=== PATIENT | female | born 2000 | race Caucasian/White ===

== ENCOUNTER 2021-12-18 18:20 | Emergency (ER) | payer BC, MEDICAID, SELFPAY ==
[2021-12-18 18:21] VITALS: BP 121/75; PULSE 107; RESP 16; TEMP 36.6; O2SAT 100; BMI 31.4
--- NOTE | 2021-12-18 20:14 | EDS_ITS ---
HPI History of Present Illness Chief Complaint: Headache Informant: patient and parent Onset/Context/Timing Onset: Days (12) Context: Gradual and Onset Timing: Intermittent and Waxes and wanes Quality -Headache: Positive for Similar Prior Headaches (But more persistent) Location: Bilateral retro-orbital worse on the right Current Severity: Mild Maximum Severity: Moderate Worsened by: Light Relieved by: Dark Associated Symptoms/Injury Associated Symptoms: Positive for Photophobia; Negative for Fever, Nausea, Vomiting, Numbness, Tingling, Visual Changes, Blurred Vision or Visual Loss Injury - BREWER: Negative for Direct Trauma or Fall Narrative Narrative: 21-year-old female has a history of having headache this cycle although started on time, has been more persistent than normal, about 12 days. She is sexually active but uses condoms. No known right now. Headache has been present throughout her cycle this time. Other than that in the duration of all of this, the headaches are similar to what she has had in the past. Photophobic but no nausea or vomiting or focal neurologic symptoms. No fevers or chills or neck stiffness or sore throat/earache. Seen at urgent care initially and directed here. PFSH PFSH Medical History Non-smoker Home Medications metoclopramide HCl 10 mg tablet 10 mg PO Q6H PRN PRN Headache or nausea #20 tabs 12/18/21 [Rx Last Taken Unknown] Allergy/AdvReac Type Severity Reaction Status Date / Time shellfish derived Allergy Hives Verified 12/18/21 18:24 Social History Smoking Status: Never smoker ROS ROS ED Constitutional Constitutional ED: Denies chills or fever(s) Eyes Eyes: Reports photophobia; Denies blurry vision or diplopia ENT ENT ED: Denies ear pain or sore throat Cardiovascular Cardiovascular: Denies chest pain or palpitations Respiratory/Chest Respiratory/Chest: Denies cough or dyspnea Gastrointestinal Gastrointestinal: Denies abdominal pain, diarrhea, nausea or vomiting Genitourinary Genitourinary ED: Reports as per HPI and vaginal bleeding; Denies dysuria or urinary frequency Musculoskeletal Musculoskeletal: Denies back pain or myalgias Integumentary Denies abscess or rash Neurologic Neurologic: Reports headache(s); Denies paresthesias or weakness EXAM Physical Exam Const Vital Signs: 12/18/21 18:21 Temperature 98 F Temperature Source Temporal Pulse Rate 107 H Respiratory Rate 16 Blood Pressure 121/75 H Blood Pressure Mean 90 Pulse Ox 100 Oxygen Delivery Method Room Air Positive well nourished and well developed Constitutional Narrative: Well-appearing General Appearance ED: well developed and NAD HEENT Reports normocephalic and moist mucous membranes atraumatic Eyes PERRL, EOMs intact bilaterally and conjunctivae normal Eyes Narrative: photophobia Neck no lymphadenopathy, supple and no meningeal signs Resp normal respiratory effort and clear to auscultation bilaterally Cardio regular rate, regular rhythm and no murmurs Rate: Negative for tachycardic GI non-distended Speculum Exam - Vagina: vaginal bleeding Extremity normal to inspection and full ROM Neuro oriented x3 and CN's II-XII intact bilaterally Sensorium / Orientation: awake and alert Speech: speech normal Gait (Neuro): normal gait Motor Exam: strength 5/5 throughout Psych mental status grossly normal Skin Lesions: no lesions Rashes: no rashes MDM MDM MDM Narrative Medical decision making narrative: test is negative, therefore am comfortable with her following up with a medical office receptionist assistant and/your PCP regarding what I suspect her migraine headaches. Mom is comfortable with that and will have her follow-up with [facility] where she goes. Patient was given Toradol and oral Reglan here, this did help her headache and given a prescription for Reglan to use as needed. Lab Data Attestation: I reviewed the patient's lab results. Labs: Laboratory Results - last 24 hr 12/18/21 20:05 Urine Test Negative Discharge Plan Triage Chief Complaint: Headache Other Complaint: Vag Bleeding ED Provider: Mike Gutierrez Dx/Rx/DC Orders Clinical Impression: Abnormal uterine bleeding, Headache, migraine Instructions: Understanding Uterine Bleeding, ED, Migraine (Classical) Prescriptions: New metoclopramide HCl [metoclopramide HCl] 10 MG tablet 10 mg PO Q6H PRN PRN (Reason: Headache or nausea) Qty: 20 0RF Primary Care Provider: Eileen Rowe Referrals: Doctor,Your [Non-Staff] - As soon as possible (And/or gynecology) Disposition Disposition: Home, Self Care
[2021-12-18 20:33] LABS: Internal QC Validated? YES +Cl - CLEAR BKGD; Pregnancy, Urine Negative Negative
[2021-12-18] MEDS: Ketorolac 30 MG/ML Syringe IM (20:35)
[2021-12-18] MEDS: Metoclopramide 10 MG Tablet PO (20:45)
== END 2021-12-18 21:08 | disposition home or self-care (01) ==
PROVIDERS: Emergency Provider Emergency Medicine; PCP Pediatrics; Visit Provider Emergency Medicine
DX: N93.9 Abnormal uterine and vaginal bleeding, unspecified (principal); G43.909 Migraine, unspecified, not intractable, without status migrainosus
CPT/HCPCS: 81025; 96372; 99283

== ENCOUNTER 2021-12-20 13:11 | Emergency (ER) | payer BC, MEDICAID, SELFPAY ==
[2021-12-20] VITALS (11 sets, daily range): BP systolic 94–114; BP diastolic 61–98; PULSE 85–111; RESP 16–22; TEMP 36.6–37.2; O2SAT 98–100; BMI 32.7
--- NOTE | 2021-12-20 13:23 | EDS_ITS ---
HPI <ALTHEA Zuluaga - Last Filed: 12/20/21 18:59> History of Present Illness Chief Complaint: Abn Labs Narrative Narrative: Patient presents today with her mom and boyfriend after abnormal labs were obtained at her [facility] this morning. She states a hemoglobin of 5.6, RBC of 1.69, and hematocrit of 17.1% were all obtained. Patient states she has had heavy menstrual bleeding for the past 14 days which has been abnormal for her. She presented to the ED on 12/18/2021 with abnormal bleeding and a headache. She states that yesterday and today the bleeding has decreased and she has only had to change her pad 1-2 times total versus having to change it 1-2 times per hour during the past few days. Patient states she feels shaky, pale, cold, and has a mild headache. Patient denies any dizziness, lightheadedness, palpitations, and pelvic pain. PFSH <ALTHEA Zuluaga - Last Filed: 12/20/21 18:59> [facility] Medical History Non-smoker Home Medications ferrous sulfate 325 mg (65 mg iron) tablet (iron) 325 mg PO DAILY anemia 14 days #14 tabs 12/20/21 [Rx Last Taken Unknown] Allergy/AdvReac Type Severity Reaction Status Date / Time shellfish derived Allergy Hives Verified 12/20/21 13:15 Social History Smoking Status: Never smoker ROS <ALTHEA Zuluaga - Last Filed: 12/20/21 18:59> ROS ED Constitutional Constitutional ED: Reports chills; Denies fever(s) or sweats Eyes Eyes: Denies blurry vision or change in vision ENT ENT ED: Denies rhinorrhea or sore throat Cardiovascular Cardiovascular: Denies chest pain or palpitations Respiratory/Chest Respiratory/Chest: Reports shortness of breath with exertion; Denies cough or dyspnea Gastrointestinal Gastrointestinal: Denies abdominal pain, constipation, diarrhea, nausea or vomiting Genitourinary Genitourinary ED: Denies dysuria or urinary frequency Musculoskeletal Musculoskeletal: Denies myalgias Integumentary Denies abscess, Abrasions or rash Neurologic Neurologic: Reports headache(s); Denies paresthesias or weakness Psychiatric Psychiatric: Denies anxiety Hematologic/Lymphatic Hematologic/Lymphatic: Reports other Details: She denies a history of anemia. EXAM <ALTHEA Zuluaga - Last Filed: 12/20/21 18:59> Physical Exam Const Vital Signs: 12/20/21 13:13 12/20/21 13:44 12/20/21 15:36 Temperature 97.8 F 98.1 F Temperature Source Temporal Oral Pulse Rate 111 H 98 Respiratory Rate 16 19 H Respiratory Effort Normal Non-Labored Blood Pressure 114/78 94/64 Blood Pressure Mean 90 74 Blood Pressure Source Blood Pressure Position Blood Pressure Location Pulse Ox 99 99 Oxygen Delivery Method Room Air Room Air 12/20/21 15:37 12/20/21 15:41 12/20/21 15:56 Temperature 98.1 F 98.1 F 98.2 F Temperature Source Oral Oral Oral Pulse Rate 93 98 97 Respiratory Rate 19 H 18 18 Respiratory Effort Blood Pressure 94/64 94/64 96/61 Blood Pressure Mean 74 74 72 Blood Pressure Source Monitor Monitor Monitor Blood Pressure Position Semi-Fowlers Semi-Fowlers Semi-Fowlers Blood Pressure Location Right Arm Right Arm Right Arm Pulse Ox 99 99 100 Oxygen Delivery Method Room Air Room Air Room Air 12/20/21 16:54 12/20/21 17:20 12/20/21 17:27 Temperature 98.3 F 98.2 F 98.5 F Temperature Source Oral Oral Oral Pulse Rate 89 91 93 Respiratory Rate 20 H 22 H 21 H Respiratory Effort Blood Pressure 99/70 106/90 H 105/84 H Blood Pressure Mean 79 95 91 Blood Pressure Source Monitor Monitor Monitor Blood Pressure Position Semi-Fowlers Semi-Fowlers Semi-Fowlers Blood Pressure Location Right Arm Right Arm Right Arm Pulse Ox 100 100 99 Oxygen Delivery Method Room Air Room Air Room Air 12/20/21 17:27 12/20/21 17:42 12/20/21 18:42 Temperature 98.8 F 98.5 F 98.9 F Temperature Source Oral Oral Oral Pulse Rate 93 91 92 Respiratory Rate 18 18 18 Respiratory Effort Blood Pressure 103/79 103/70 Blood Pressure Mean 87 81 Blood Pressure Source Monitor Monitor Blood Pressure Position Semi-Fowlers Semi-Fowlers Blood Pressure Location Right Arm Right Arm Pulse Ox 99 98 99 Oxygen Delivery Method Room Air Room Air Room Air 12/20/21 19:06 Temperature 98.1 F Temperature Source Oral Pulse Rate 85 Respiratory Rate 18 Respiratory Effort Blood Pressure 111/98 H Blood Pressure Mean 102 Blood Pressure Source Monitor Blood Pressure Position Semi-Fowlers Blood Pressure Location Right Arm Pulse Ox 99 Oxygen Delivery Method Room Air Positive well nourished and well developed General Appearance ED: well developed HEENT Reports moist mucous membranes Negative for trauma or tenderness Eyes PERRL and EOMs intact bilaterally Neck supple Resp normal respiratory effort and clear to auscultation bilaterally Auscultation: Negative for rales, rhonchi or wheezes Cardio regular rhythm and no murmurs Rate: tachycardic GI normal to inspection, nondistended, normoactive bowel sounds and non-tender Palpation: soft Extremity normal to inspection Neuro oriented x3, CN's II-XII intact bilaterally and no sensory deficits noted Sensorium / Orientation: alert Motor Exam: strength 5/5 throughout Psych mental status grossly normal Skin no rashes or lesions noted, no wounds and skin turgor normal <Dr. Moises Retana, DO - Last Filed: 12/20/21 21:12> Physical Exam Const Vital Signs: 12/20/21 13:13 12/20/21 13:44 12/20/21 15:36 Temperature 97.8 F 98.1 F Temperature Source Temporal Oral Pulse Rate 111 H 98 Respiratory Rate 16 19 H Respiratory Effort Normal Non-Labored Blood Pressure 114/78 94/64 Blood Pressure Mean 90 74 Blood Pressure Source Blood Pressure Position Blood Pressure Location Pulse Ox 99 99 Oxygen Delivery Method Room Air Room Air 12/20/21 15:37 12/20/21 15:41 12/20/21 15:56 Temperature 98.1 F 98.1 F 98.2 F Temperature Source Oral Oral Oral Pulse Rate 93 98 97 Respiratory Rate 19 H 18 18 Respiratory Effort Blood Pressure 94/64 94/64 96/61 Blood Pressure Mean 74 74 72 Blood Pressure Source Monitor Monitor Monitor Blood Pressure Position Semi-Fowlers Semi-Fowlers Semi-Fowlers Blood Pressure Location Right Arm Right Arm Right Arm Pulse Ox 99 99 100 Oxygen Delivery Method Room Air Room Air Room Air 12/20/21 16:54 12/20/21 17:20 12/20/21 17:27 Temperature 98.3 F 98.2 F 98.5 F Temperature Source Oral Oral Oral Pulse Rate 89 91 93 Respiratory Rate 20 H 22 H 21 H Respiratory Effort Blood Pressure 99/70 106/90 H 105/84 H Blood Pressure Mean 79 95 91 Blood Pressure Source Monitor Monitor Monitor Blood Pressure Position Semi-Fowlers Semi-Fowlers Semi-Fowlers Blood Pressure Location Right Arm Right Arm Right Arm Pulse Ox 100 100 99 Oxygen Delivery Method Room Air Room Air Room Air 12/20/21 17:27 12/20/21 17:42 12/20/21 18:42 Temperature 98.8 F 98.5 F 98.9 F Temperature Source Oral Oral Oral Pulse Rate 93 91 92 Respiratory Rate 18 18 18 Respiratory Effort Blood Pressure 103/79 103/70 Blood Pressure Mean 87 81 Blood Pressure Source Monitor Monitor Blood Pressure Position Semi-Fowlers Semi-Fowlers Blood Pressure Location Right Arm Right Arm Pulse Ox 99 98 99 Oxygen Delivery Method Room Air Room Air Room Air 12/20/21 19:06 Temperature 98.1 F Temperature Source Oral Pulse Rate 85 Respiratory Rate 18 Respiratory Effort Blood Pressure 111/98 H Blood Pressure Mean 102 Blood Pressure Source Monitor Blood Pressure Position Semi-Fowlers Blood Pressure Location Right Arm Pulse Ox 99 Oxygen Delivery Method Room Air MDM <ALTHEA Zuluaga - Last Filed: 12/20/21 18:59> [facility] MDM Narrative Medical decision making narrative: Because of low red blood cell count and hemoglobin patient will be receiving 2 units of blood. She was slightly tachycardic before blood administration but otherwise appeared stable. Vital signs normalized after blood administration. patient was given oral contraceptives from her derrick builder that she is to start on Thursday. [facility] CL[facility]ICAL [facility]SE [facility]IST Dr. Humphreys was consulted and it was her recommendation that as long as patient feels stable and vaginal bleeding has minimized, she can safely discharge home with close follow-up from her office. She would like patient to start her oral contraceptives tonight. She stated her office will be giving patient a call on Thursday to schedule an appointment to look into this further. Lab Data Attestation: I reviewed the patient's lab results. Lab results narrative: RBC 1.64, Hgb 5.1, Hct 16.9, iron 37 Labs: Laboratory Results - last 24 hr 12/20/21 12/20/21 12/20/21 13:40 13:40 13:40 WBC 7.3 RBC 1.64 L Hgb 5.1 L* Hct 16.9 L MCV 103.0 H MCH 31.1 MCHC 30.2 L RDW Std Deviation 63.0 H RDW Coeff of Alvin 17.3 H Plt Count 324 MPV 9.4 Immature Gran % (Auto) 2.100 H Neut % (Auto) 57.2 Lymph % (Auto) 30.5 Brantley % (Auto) 8.3 Eos % (Auto) 1.5 Baso % (Auto) 0.4 Absolute Neuts (auto) 4.2 Absolute Lymphs (auto) 2.23 Nucleated RBC % 1.0 [address] Path Review May foll Polychromasia 1+ Hypochromasia 2+ PT 12.4 INR 1.0 APTT 30.0 Sodium 140 Potassium 3.8 Chloride 108 H Carbon Dioxide 26.0 Anion Gap 6 BUN 11 Creatinine 1.13 H Estim Creat Clear Calc 83.02 Est GFR (MDRD) Af Amer 78 Est GFR (MDRD) Non-Af 65 BUN/Creatinine Ratio 9.7 L Glucose 93 Calcium 8.4 L Iron 37 L TIBC 294 Iron Saturation 12.6 L Ferritin 21 Blood Type Antibody Screen Crossmatch 12/20/21 12/20/21 13:40 14:39 WBC RBC Hgb Hct MCV MCH MCHC RDW Std Deviation RDW Coeff of Alvin Plt Count MPV Immature Gran % (Auto) Neut % (Auto) Lymph % (Auto) Brantley % (Auto) Eos % (Auto) Baso % (Auto) Absolute Neuts (auto) Absolute Lymphs (auto) Nucleated RBC % Diff Path Review Polychromasia Hypochromasia PT INR APTT Sodium Potassium Chloride Carbon Dioxide Anion Gap BUN Creatinine Estim Creat Clear Calc Est GFR (MDRD) Af Amer Est GFR (MDRD) Non-Af BUN/Creatinine Ratio Glucose Calcium Iron TIBC Iron Saturation Ferritin Blood Type O POSITIVE Antibody Screen NEGATIVE Crossmatch See Detail <Dr. Moises Retana, DO - Last Filed: 12/20/21 21:12> [facility] MDM Narrative Medical decision making narrative: Because of low red blood cell count and hemoglobin patient will be receiving 2 units of blood. She was slightly tachycardic before blood administration but otherwise appeared stable. Vital signs normalized after blood administration. patient was given oral contraceptives from her derrick builder that she is to start on Thursday. CRITICAL CARE CLINICAL NURSE SPECIALIST Dr. Humphreys was consulted and it was her recommendation that as long as patient feels stable and vaginal bleeding has minimized, she can safely discharge home with close follow-up from her office. She would like patient to start her oral contraceptives tonight. She stated her office will be giving patient a call on Thursday to schedule an appointment to look into this further. Attending note: Patient seen and evaluated with leadership program internship. I perform my own [id number] evaluation. I agree with the plan of work-up. Sent in here by her derrick builder after abnormal blood work with hemoglobin 5.6 with outpatient. Seen 2 days ago abnormal uterine bleeding. Had negative . Sent for follow-up. She has monthly menstrual periods lasting 7 days, this last 1 going nearly 14 days however subsiding. Denies lightheaded symptoms. States mild exertional dyspnea. No chest tightness. No syncopal episodes. Denies rectal bleeding. No history of blood transfusions no anticoagulation medicines. Exam pale conjunctiva pallor of skin. Heart slight tachycardia. Recheck labs inc luding hemoglobin 5.1. Iron studies normal TIBC ferritin however iron was low. She is given 2 units of blood in the ED. Tolerate well. Discussed with her gynecology team. She should be started on iron supplements. She will also start her oral contraceptives tonight per their direction. She will follow-up on Thursday for further work-up as an outpatient. Lab Data Labs: Laboratory Results - last 24 hr 12/20/21 12/20/21 12/20/21 13:40 13:40 13:40 WBC 7.3 RBC 1.64 L Hgb 5.1 L* Hct 16.9 L MCV 103.0 H MCH 31.1 MCHC 30.2 L RDW Std Deviation 63.0 H RDW Coeff of Alvin 17.3 H Plt Count 324 MPV 9.4 Immature Gran % (Auto) 2.100 H Neut % (Auto) 57.2 Lymph % (Auto) 30.5 Brantley % (Auto) 8.3 Eos % (Auto) 1.5 Baso % (Auto) 0.4 Absolute Neuts (auto) 4.2 Absolute Lymphs (auto) 2.23 Nucleated RBC % 1.0 Diff Path Review May foll Polychromasia 1+ Hypochromasia 2+ PT 12.4 INR 1.0 APTT 30.0 Sodium 140 Potassium 3.8 Chloride 108 H Carbon Dioxide 26.0 Anion Gap 6 BUN 11 Creatinine 1.13 H Estim Creat Clear Calc 83.02 Est GFR (MDRD) Af Amer 78 Est GFR (MDRD) Non-Af 65 BUN/Creatinine Ratio 9.7 L Glucose 93 Calcium 8.4 L Iron 37 L TIBC 294 Iron Saturation 12.6 L Ferritin 21 Blood Type Antibody Screen Crossmatch 12/20/21 12/20/21 13:40 14:39 WBC RBC Hgb Hct MCV MCH MCHC RDW Std Deviation RDW Coeff of Alvin Plt Count MPV Immature Gran % (Auto) Neut % (Auto) Lymph % (Auto) Brantley % (Auto) Eos % (Auto) Baso % (Auto) Absolute Neuts (auto) Absolute Lymphs (auto) Nucleated RBC % Diff Path Review Polychromasia Hypochromasia PT INR APTT Sodium Potassium Chloride Carbon Dioxide Anion Gap BUN Creatinine Estim Creat Clear Calc Est GFR (MDRD) Af Amer Est GFR (MDRD) Non-Af BUN/Creatinine Ratio Glucose Calcium Iron TIBC Iron Saturation Ferritin Blood Type O POSITIVE Antibody Screen NEGATIVE Crossmatch See Detail Discharge Plan Triage Chief Complaint: Abn Labs Other Complaint: Headache ED Midlevel Provider: Nava Villela ED Provider: Moises Retana Dx/Rx/DC Orders Clinical Impression: Abnormal uterine bleeding, Headache, Anemia, Transfusion of blood during current hospitalisation Instructions: ED Dysfunctional Uterine Bleeding Prescriptions: New ferrous sulfate [iron] 325 mg (65 mg iron) tablet 325 mg PO DAILY 14 Days Qty: 14 0RF Primary Care Provider: Eileen Rowe Referrals: Eileen Rowe MD [Primary Care Provider] - Ernestina Humphreys DO [Med Staff - Active Staff] - 5-7 Days Activity Restrictions/Additional Instructions: Begin oral contraceptives tonight if possible. Follow-up with Dr. Humphreys, her office will be giving you a call on Thursday. Please seek medical attention if any new or worsening of symptoms. Disposition Disposition: Home, Self Care Discharge Date/Time: 12/20/21 19:07
[2021-12-20 14:08] LABS: Absolute Lymphocyte Count 2.23 X10^3/uL (0.83-4.51); Absolute Neutrophil Count 4.2 X10^3/uL (2.0-7.7); Basophil# 0.03 X10^3/uL; Basophil% 0.4 % (0-1); Eosinophil# 0.11 X10^3/uL; Eosinophils% 1.5 % (0-5); Hematocrit 16.9 % (37-47); Hemoglobin 5.1 g/dL (12.0-15.0); Lymphocyte # 2.23 X10^3/ul (0.83-4.51); Lymphocyte % 30.5 % (19-41); Mean Corp Hgb Conc 30.2 g/dL (32-36); Mean Corpuscular Hgb 31.1 pg (27.0-32.0); Mean Platelet Vol. 9.4 fl (6.2-12.0); Monocyte# 0.61 X10^3/uL; Monocyte% 8.3 % (0-10); Neutrophil # 4.18 X10^3/uL (2.7-7.7); Neutrophil % 57.2 % (47-70); POSITIVE COUNT YES; Platelet Count 324 K/mm3 (150-450); RBC Distribution Width CV 17.3 % (11.6-14.6); Red Blood Count 1.64 M/mm3 (4.2-5.4); White Blood Count 7.3 K/mm3 (4.4-11.0)
[2021-12-20 14:23] LABS: Prothrombin Time (Protime)PT. 12.4 SECONDS (11.7-14.9)
[2021-12-20 14:26] LABS: Anion Gap 6 (5-15); BUN 11 mg/dL (7-18); BUN/Creat Ratio 9.7 RATIO (10-20); Calcium,Total 8.4 mg/dL (8.5-10.1); Chloride 108 mmol/L (98-107); Creatinine, Serum 1.13 mg/dL (0.55-1.02); EST Glomerular Filtration Rate 65 mL/min (>60); Est Glom Filt Rate - Afr Amer 78 mL/min (>60); Estimated Creatinine Clearance 83.02 ml/min; Ferritin 21 ng/mL (8-252); Glucose 93 mg/dL (74-106); Iron 37 ug/dL (50-170); Iron Binding Capacity,Total 294 ug/dL (250-450); PERCENT IRON SATURATION 12.6 % (15.0-55.0); Potassium 3.8 mmol/L (3.5-5.1); Sodium Level 140 mmol/L (136-145)
[2021-12-20 14:28] LABS: Differential Indicated SCAN CRITERIA MET
[2021-12-20 14:29] LABS: Hypochromasia 2+; Polychromasia 1+
[2021-12-24 07:48] LABS: Pathologist Review Reviewed
== END 2021-12-20 19:07 | disposition home or self-care (01) ==
PROVIDERS: Physician Assistant; Emergency Provider Emergency Medicine; PCP Pediatrics; Visit Provider Emergency Medicine
DX: N93.9 Abnormal uterine and vaginal bleeding, unspecified (principal); D64.9 Anemia, unspecified; R51.9 Headache, unspecified
CPT/HCPCS: 36430; 80048; 82728; 83540; 83550; 85025; 85610; 85730; 86850; 86900; 86901; 86920; 86922; 99283; J7040; P9016